=== PATIENT | male | born 1945 | race Caucasian/White ===

== ENCOUNTER → 2018-04-01 10:52 | Outpatient (CLI) | payer MEDICARE, BC, SELFPAY ==
--- NOTE | 2018-04-01 10:55 | RAD_ITS ---
STUDY: X-RAY - LEFT HAND, ATTENTION FIFTH FINGER REASON FOR EXAM: Pain/cyst of the fifth finger by nailbed. TECHNIQUE: 3 view(s) of the finger were obtained. COMPARISON: None. FINDINGS: Normal metacarpal head. Normal metacarpophalangeal joint. Normal proximal phalanx. Normal middle phalanx. Normal distal phalanx without osseous erosion. Normal proximal interphalangeal joint. There is mild arthrosis of the distal interphalangeal joint with small marginal osteophytes and mild joint space narrowing. 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 Electronically Signed: Lorenzo Chan MD at 11:38 EDT Tel , Service support ,
--- NOTE | 2018-04-01 11:47 | RAD_ITS ---
STUDY: X-RAY - LEFT HAND REASON FOR EXAM: Lump at the base of the thumb, injury several years ago. TECHNIQUE: 3 view(s) of the hand. COMPARISON: None. FINDINGS: Normal radiocarpal articulation. Normal distal radioulnar joint. Normal visualized carpal bones. There is joint space narrowing of the triscaphe articulation. There is joint space narrowing of the carpometacarpal articulation of the thumb. Normal second through fifth carpometacarpal joints. Normal metacarpi. Normal metacarpophalangeal joint of the thumb. Normal interphalangeal joint of the thumb. Normal proximal and distal phalanges of the thumb. Normal metacarpophalangeal joints of the second through fifth fingers. There are small marginal osteophytes and mild joint space narrowing of the fifth distal interphalangeal joint. Normal phalanges of the second through fifth fingers. There is soft tissue fullness at the base of the thumb corresponding to the marker without associated soft tissue calcifications. There is vascular calcification in the distal forearm. RAD/Hand Min 3 Views IMPRESSION: Soft tissue fullness at the base of the thumb, suggestive of mass. 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 Electronically Signed: Lorenzo Chan MD at 12:28 EDT Tel , Service support ,
== END ==
PROVIDERS: Visit Provider Orthopaedic Surgery
DX: M79.642 Pain in left hand (principal); M79.645 Pain in left finger(s)
CPT/HCPCS: 73130; 73140